=== PATIENT | male | born 1995 | race Caucasian/White ===

== ENCOUNTER 2023-11-21 19:46 | Emergency (ER) | payer SELFPAY ==
[2023-11-21] MEDS: Ondansetron 4 MG Tab.DIS PO STA (20:10)
[2023-11-21] MEDS: oxyCODONE 5 MG Tab PO STA (20:10)
== END 2023-11-21 23:14 | disposition home or self-care (01) ==
LOC: MW.ED 19:46
DX: S82.141A Displaced bicondylar fracture of right tibia, initial encounter for closed fracture (principal); S82.831A Other fracture of upper and lower end of right fibula, initial encounter for closed fracture; Z75.8 Other problems related to medical facilities and other health care; V86.56XA Driver of dirt bike or motor/cross bike injured in nontraffic accident, initial encounter; Y93.89 Activity, other specified
CPT/HCPCS: 73552; 73562; 73590; 73700; 99284; A9270; 99283

== ENCOUNTER 2023-11-25 06:41 | Day surgery (SDC) | payer SELFPAY ==
[2023-11-25] MEDS ORDERED: Ropivacaine 0.5% 5 MG/ML 30 ML SDV ONE ×2 (06:42→07:34)
[2023-11-25] MEDS ORDERED: Lidocaine 1% 20 ML MDV ONE (06:42)
[2023-11-25] MEDS ORDERED: Ropivacaine HCl/PF 200 ML ONE (06:42)
[2023-11-25] MEDS ORDERED: Midazolam 1 MG/ML 2 ML SDV ONE (06:45)
[2023-11-25] MEDS ORDERED: fentaNYL 100 MCG/2 ML SDV ONE (06:45)
[2023-11-25] MEDS ORDERED: Ondansetron 4 MG/2 ML SDV ONE (06:53)
[2023-11-25] MEDS ORDERED: Dexamethasone 4 MG/ML 5 ML MDV ONE (06:53)
[2023-11-25] MEDS ORDERED: Ketamine HCL/NACL, ISO-OSM 50 MG/5 ML Syringe ONE ×3 (06:56→10:21)
[2023-11-25] MEDS ORDERED: propofoL 50 ML ONE ×3 (06:58→10:13)
[2023-11-25] MEDS: Lactated Ringers 1,000 ML IV SCH (07:00)
[2023-11-25] MEDS ORDERED: Bupivacaine 0.5% 30 ML SDV ONE (07:15)
[2023-11-25] MEDS ORDERED: Morphine 2 MG/ML SYRINGE IVPUSH PRN (07:46)
[2023-11-25] MEDS ORDERED: HYDROmorphone 1 MG/ML Syringe IVPUSH PRN (07:46)
[2023-11-25] MEDS ORDERED: Albuterol 0.083% 2.5 MG/3 ML Neb Soln NEB PRN (07:46)
[2023-11-25] MEDS ORDERED: fentaNYL 50 MCG/ML SDV IVPUSH PRN (07:46)
[2023-11-25] MEDS ORDERED: Naloxone 0.4 MG/ML SDV IVPUSH PRN (07:46)
[2023-11-25] MEDS ORDERED: Metoclopramide 10 MG/2 ML SDV IVPUSH PRN (07:46)
[2023-11-25] MEDS ORDERED: Ondansetron 4 MG/2 ML SDV IVPUSH PRN (07:46)
[2023-11-25] MEDS ORDERED: droPERidol 5 MG/2 ML SDV IVPUSH PRN (07:46)
[2023-11-25] MEDS ORDERED: ceFAZolin 2 GM in Sodium Chloride 0.9% 50 ML IV ONE (08:00)
[2023-11-25] MEDS ORDERED: ceFAZolin 2 GM Vial ONE (08:06)
[2023-11-25] MEDS ORDERED: Water For Injection, Sterile 20 ML ONE ×2 (08:06→11:33)
[2023-11-25] MEDS ORDERED: Ketorolac 30 MG/ML SDV ONE (10:13)
[2023-11-25] MEDS ORDERED: ceFAZolin 1 GM Vial ONE (10:28)
== END 2023-11-25 15:30 | disposition home or self-care (01) ==
LOC: MW.SDS 06:41
PROVIDERS: ATTEND Orthopaedic Surgery
DX: S82.141A Displaced bicondylar fracture of right tibia, initial encounter for closed fracture (principal); S82.251A Displaced comminuted fracture of shaft of right tibia, initial encounter for closed fracture; F17.290 Nicotine dependence, other tobacco product, uncomplicated; X58.XXXA Exposure to other specified factors, initial encounter
CPT/HCPCS: 01392; 64447; C1713; C1776; J0131; J0665; J0690; J1100; J1885; J2250; J2405; J2704; J2795; J3010; J3490; J7120

== ENCOUNTER 2023-12-16 06:31 | Inpatient (IN) | payer SELFPAY ==
[2023-12-16] MEDS: Lactated Ringers 1,000 ML IV SCH (06:55)
[2023-12-16] MEDS ORDERED: Bupivacaine 0.5% 30 ML SDV ONE (07:17)
[2023-12-16] MEDS ORDERED: Propofol 200 MG/20 ML SDV ONE ×3 (07:21→09:05)
[2023-12-16] MEDS ORDERED: fentaNYL 250 MCG/5 ML SDV ONE ×2 (07:21→07:35)
[2023-12-16] MEDS ORDERED: Ketamine HCL/NACL, ISO-OSM 50 MG/5 ML Syringe ONE ×3 (07:21→08:46)
[2023-12-16] MEDS ORDERED: Ondansetron 4 MG/2 ML SDV IVPUSH PRN (07:24)
[2023-12-16] MEDS ORDERED: Metoclopramide 10 MG/2 ML SDV IVPUSH PRN (07:24)
[2023-12-16] MEDS ORDERED: HYDROmorphone 1 MG/ML Syringe IVPUSH PRN (07:24)
[2023-12-16] MEDS ORDERED: Naloxone 0.4 MG/ML SDV IVPUSH PRN (07:24)
[2023-12-16] MEDS ORDERED: Morphine 2 MG/ML SYRINGE IVPUSH PRN ×2 (07:24→10:04)
[2023-12-16] MEDS ORDERED: Albuterol 0.083% 2.5 MG/3 ML Neb Soln NEB PRN (07:24)
[2023-12-16] MEDS ORDERED: fentaNYL 50 MCG/ML SDV IVPUSH PRN (07:24)
[2023-12-16] MEDS ORDERED: droPERidol 5 MG/2 ML SDV IVPUSH PRN (07:24)
[2023-12-16] MEDS ORDERED: Famotidine 20 MG/2 ML SDV ONE (07:26)
[2023-12-16] MEDS ORDERED: Sugammadex Sodium 200 MG/2 ML VIAL IV ONE (07:34)
[2023-12-16] MEDS ORDERED: Dexamethasone 4 MG/ML 5 ML MDV ONE ×2 (07:34→08:26)
[2023-12-16] MEDS ORDERED: Lidocaine 2% 5 ML SDV ONE (07:34)
[2023-12-16] MEDS ORDERED: Ketorolac 30 MG/ML SDV ONE ×2 (07:34→08:26)
[2023-12-16] MEDS ORDERED: Rocuronium Bromide 50 MG/5 ML Syringe ONE (07:34)
[2023-12-16] MEDS ORDERED: Ondansetron 4 MG/2 ML SDV ONE ×2 (07:34→08:26)
[2023-12-16] MEDS ORDERED: Midazolam 1 MG/ML 2 ML SDV ONE (07:35)
[2023-12-16] MEDS ORDERED: propofoL 50 ML ONE ×2 (07:49→10:21)
[2023-12-16] MEDS ORDERED: fentaNYL 100 MCG/2 ML SDV ONE (08:48)
[2023-12-16] MEDS ORDERED: HYDROmorphone 2 MG/ML Syringe ONE ×2 (09:13→09:33)
[2023-12-16] MEDS ORDERED: Sodium Chloride 0.9% 2.5 ML Syringe FLUSH PRN (10:04)
[2023-12-16] MEDS ORDERED: Sodium Chloride 0.9% 10 ML Syringe FLUSH PRN (10:04)
[2023-12-16] MEDS ORDERED: oxyCODONE 5 MG Tab PO PRN (10:04)
[2023-12-16] MEDS ORDERED: diphenhydrAMINE 25 MG Cap PO PRN (10:04)
[2023-12-16] MEDS ORDERED: traMADol 50 MG Tab PO PRN (10:04)
[2023-12-16] MEDS: cefTRIAXone 1 GM in Sodium Chloride 0.9% 50 ML IV ONE (11:06)
[2023-12-16] MEDS: VANCOmycin 2 GM/400 ML 2 GM in Premix Bag 1 BAG IV ONE (11:06)
[2023-12-16] MEDS: Acetaminophen 325 MG Tab PO SCH (13:28)
[2023-12-16] MEDS: Ondansetron 4 MG/2 ML SDV IVPUSH PRN (13:28)
[2023-12-16] MEDS: Ketorolac 30 MG/ML SDV IVPUSH SCH (14:52)
[2023-12-16] MEDS ORDERED: Aspirin 325 MG Tab PO SCH (21:00)
[2023-12-17] MEDS ORDERED: cefTRIAXone 1 GM in Sodium Chloride 0.9% 50 ML IV SCH (08:00)
== END 2023-12-16 16:50 | DRG 857 ==
LOC: MW.SDS 06:31 → MW.MS 06:32 → MW.SDS 06:32 → MW.MS 10:58
PROVIDERS: ADMIT Orthopaedic Surgery; ATTEND Orthopaedic Surgery
PROC: 0S9C0ZZ Drainage of Right Knee Joint, Open Approach (ICD-10-PCS; principal; 2023-12-16 08:00)
DX: T81.42XA Infection following a procedure, deep incisional surgical site, initial encounter (principal); L02.415 Cutaneous abscess of right lower limb; S82.101D Unspecified fracture of upper end of right tibia, subsequent encounter for closed fracture with routine healing; S82.831D Other fracture of upper and lower end of right fibula, subsequent encounter for closed fracture with routine healing; Q75.009 Craniosynostosis, unspecified; Z79.82 Long term (current) use of aspirin; Z79.899 Other long term (current) drug therapy; Z86.16 Personal history of COVID-19; X58.XXXD Exposure to other specified factors, subsequent encounter
CPT/HCPCS: 87070; 87075; 87205; A9270-GY; J0131; J0665; J1100; J1170; J1885; J2250; J2405; J2704; J3010; J3490; J7120